=== PATIENT | male | born 1990 | race African-American/Black ===

== ENCOUNTER 2024-05-31 13:00 | Outpatient (CLI) | payer OTHER, SELFPAY ==
--- NOTE | ~2024-05-31 | XR_ITS ---
EXAMINATION: XR chest 2V 05/31/2024 13:29 INDICATION: Left neck pain. Atypical chest pain. PROCEDURE: 2 view chest COMPARISON: No prior studies for comparison. FINDINGS: The lungs are clear. The cardiomediastinal silhouette is within normal limits. There are no pleural effusions. There is no pneumothorax suspected. IMPRESSION: 1: NO ACUTE CARDIOPULMONARY DISEASE. Reviewed, dictated and finalized at location A.
--- NOTE | ~2024-05-31 | XR_ITS ---
XR cervical spine 4-5V 05/31/2024 13:29 Indication: Left neck pain Procedure: 4 views cervical spine Comparison: No prior studies for comparison. Findings: No fracture, subluxation or dislocation. Lateral masses normally aligned. Odontoid process within normal limits. Lung apices are normal. No prevertebral soft tissue abnormality. Vertebral body and disc heights are preserved. Impression: 1: No significant abnormality of the cervical spine. Reviewed, dictated and finalized at location A. Impression: 1: No significant abnormality of the cervical spine.
--- OUTSIDE RECORDS SUMMARY | 2024-05-31 13:09 | XMS_ITS | Data Portability ---
Author Organization [facility] Address [address] [place] [address] Assessment Encounter Date Assessment Date Assessment LastModified by Organization Details LastModified Time 08/06/2020 08/06/2020 His pain is out of proportion to what I can find on exam, explained by his labs or imaging studies to date. He needs further imaging with an MRI of his lumbar spine and the opinion of his vegetable tester. [email or web address] Not available 08/06/2020 16:02:24 11/18/2021 11/18/2021 The abnormal findings on his MRI do not explain his upper back pain and the fact that nothing has ever helped his back pain makes me wonder if there is another factor in play. He has a history of a mood disorder and a positive RF and he was referred to the vegetable tester, unfortunately, I have never received a consultation note from his visit and he does not know where he was seen. [email or web address] Not available 11/25/2021 08:40:03 Plan of Treatment Reminders Order Date Submit Date Provider Last Modified By Organization Details Last Modified Time Details Appointments ANY 15 2024 08:15A M Lavern Alejandro MD Not available Not available Not available Lab CBC 2024 025 [facility], [address], [place], [address], 05/27/2024 09:37:54 basic metabol ic 1998 panel, serum or plasma 2024 025 [facility], [address], [place], [address], 05/27/2024 09:37:53 rf (rheuma toid factor) + anti-cc p abs, serum 2021 [facility], [address], [place], [address], 11/25/2021 06:11:50 CBC w/ auto diff 2021 [facility], [address], [place], [address], 11/25/2021 06:11:52 CMP, serum or plasma 2021 [facility], [address], [address], [place], [address], 11/25/2021 06:11:51 lipid panel, serum 2021 [facility], [address], [place], [address], 11/25/2021 06:11:50 urinaly sis, complet e 2021 [facility], [address], [place], [address], 11/18/2021 15:47:08 rf (rheuma toid factor) + anti-cc p abs, serum 2020 021 [facility], [address], [place], [address], 08/24/2020 06:10:44 WERNER (antinu clear antibod ies) screen, serum 2020 [facility], [address], [place], [address], 08/09/2020 15:08:44 ESR (erythr ocyte sedimen tation rate), blood 2020 [facility], [address], [place], [address], 08/09/2020 15:08:45 rf (rheuma toid factor) , serum 2020 [facility], [address], [place], [address], 08/09/2020 15:08:43 WERNER (antinu clear antibod ies) titer + pattern , ifa, serum 2020 [facility], [address], [place], [address], 08/09/2020 15:08:45 Referral rheumat ologist referra l - Polyart hralgia 2020 [facility], [address] [place] [address], [address], 08/06/2020 14:50:31 psychia trist referra l 2020 [email or web address] Not available 08/10/2020 16:27:28 Procedures None recorde d. Surgeries None recorde d. Imaging XR, cervica l spine - Left sided neck pain 2024 025 [facility], [address] [place] [address] [place] [address], [address], 05/26/2024 14:35:16 XR, chest - Atypica l left sided chest pain, pain around the left scapula 2024 025 [facility] (Imaging), [address] [place] [address] [place] [address], [phone], 05/26/2024 14:50:34 XR, thoraci c spine, 2 view - Pain, positiv e RF [facility] [address] [place], [address], 11/18/2021 16:03:04 XR, lumbosa cral spine - Pain, positiv e RF [email or web address] [address] [place], [address], 11/18/2021 16:03:03 MRI, lumbar spine, w/o contras t - Worseni ng lower back pain with failure of physica l therapy 2020 [facility] ([facility]), [address] [place], [address], 08/09/2020 20:24:39 XR, shoulde r - Pain 2020 [facility] ([facility] Sched[facility]), [address] [place], [address], 08/06/2020 14:41:50 XR, hip, bilater al - Pain 2020 [facility] ([facility] Sched[facility]), [address] [place], [address], 08/06/2020 14:39:00 Medication Orders ketorol ac 10 mg tablet 2021 [facility][id number], [address], [place], [id number], 05/26/2024 12:24:19 Medrol (Pedro) 4 mg tablets in a dose pack 2020 [facility][id number], [address], [place], [id number], 11/18/2021 15:34:14 duloxet ine 60 mg capsule ,delaye d release 2020 [facility] #[id number], [address] [facility] [place], [id number], 11/18/2021 15:41:31 ketorol ac 10 mg tablet 2020 021 [facility] #[id number], [address] [place], [place], [id number], 05/26/2024 12:24:19 Patient TargetsNo targets recorded. Patient Instructions Encounter Date Encounter Id Patient Instructions Last Modified By Organization Details Last Modified Time 08/06/2020 [id number] learning about mood disorders oajao Not available 08/06/2020 13:29:51 Labs (Old and ne w orders) Xrays Rheumatology Ketorolac, side effects were discussed MRI Follow up in 3 weeks Addendum (After the patient was discharged) Based on his PHQ9 screening done by the MA, he will be referred to the psychiatrist. I now wonder if this has a bearing on his symptoms and if this is a somatic representation of a mood disorder. oajao Not available 08/06/2020 16:09:55 He has requested that his FMLA form be completed, he is aware that I do not have a clear diagnosis and may be in a better position after the work up is complete and he is seen by the specialist. In the first instance I have completed the form based on his next appointment in ~ 3 weeks He has severe and intractable polyarthralgia that prevents him from working. He initially had chronic back pain for the last 2 years, but it now involves other joints. oajao Not available 08/06/2020 16:09:37 08/20/2020 [id number] herniated disc: care instructions oajao Not available 08/20/2020 16:18:55 herniated disc: exercises oajao Not available 08/20/2020 16:18:55 sacroiliac pain: exercises oajao Not available 08/20/2020 16:17:59 learning about mood disorders oajao Not available 08/20/2020 15:27:02 Labs (New and ol d orders) All imaging and lab reports to [facility] Rheumatology, please He really should try the Ketorolac that was previously prescribed Follow up in 6 weeks oajao Not available 08/20/2020 16:22:28 All his lab results were discussed in great detail On his last visit, he was rather clear that he could not return to work, it however appears that he has continued to work at a reduced capacity. oajao Not available 08/20/2020 16:21:54 11/25/2020 [id number] back care and preventing injuries: care instructions oajao Not available 11/25/2020 16:11:51 herniated disc: care instructions oajao Not available 11/25/2020 16:07:49 herniated disc: exercises oajao Not available 11/25/2020 16:07:49 Note from the neurosurgeon, CORTNEY [place]. Note from the Pediatric Surgeon when he is eventually seen. Short course of Prednisone, the side effects were discussed in detail. Start Duloxetine as he has pain and a mood disorder and he has not responded well to NSAIDS, muscle relaxants and interventional pain management. Side effects of Duloxetine were discussed including but not limited to worsening of his mood. He really needs to be seen by the vegetable tester. Follow up in 6 weeks oajao Not available 11/26/2020 09:06:35 Detailed visit, I have explained to him that unfortunately, I have not receive any information from [facility] and I can only complete the [facility] forms based on what is available to me. He may want to get the forms to the neurosurgeon as well. oajao Not available 11/26/2020 09:05:49 11/18/2021 [id number] learning about healthy weight oajao Not available 11/18/2021 15:48:58 Labs Xrays Ketorolac, side effects were discussed Follow up in 3 weeks oajao Not available 11/18/2021 15:48:19 05/26/2024 [id number] neck pain: care instructions oajao Not available 05/26/2024 12:42:53 Labs Xray cervic al spine and chest Follow up in 3 weeks oajao Not available 05/26/2024 12:43:51 Reason for Referral Pediatric Surgeon Referral for Musculoskeletal pain Polyarthralgia Polyarthralgia Referring Physician: Lavern Alejandro, Internal Medicine, Encounter Date: 08/06/2020 Psychiatrist Referral for De pressive disorder Referring Physician: Lavern Alejandro, Internal Medicine, Encounter Date: 08/06/2020 Results Created Date Observation Date Name Description Value Unit Range Abnormal Flag Note LastModifiedBy Organization Detail LastModifiedTime 08/07/19 21 08/07/2020 RHEUM ATOID FACTO R (RF) rheumatoid factor (rf) 24.8 IU/mL 0.0-13 .9 above high normal Not Available [facility] ([facility]) [address] [place], [address], 08/09/2020 15:08:43 08/07/19 21 08/07/2020 WERNER W/REF MEKHI IF POSIT CAMILA WERNER direct NEGATI VE negati ve Not Available [facility] ([facility]) [address] [place], [address], 08/09/2020 15:08:44 08/07/19 21 08/07/2020 SEDIM ENTAT ION RATE- WESTE RGREN sedimentatio n rate-westerg eric 2 mm/HR 0-15 Not Available [facility] ([facility]) [address] [place], [address], 08/09/2020 15:08:45 08/07/19 21 08/09/2020 ANTIN UCLEA R ANTIB ODIES , IFA antinuclear antibodies, ifa NEGATI VE Negat camila <1:80 Borde rline 1:80 Posit camila >1:80 Not Available [facility] ([facility]) [address] [place], [address], 08/09/2020 15:08:45 08/21/19 21 08/21/2020 RHEUM ATOID ARTHR ITIS PROFI LE rheumatoid factor (rf) 23.7 IU/mL 0.0-13 .9 above high normal Not Available [facility] ([facility]) [address] [place], [address], 08/24/2020 06:10:44 08/21/19 21 08/24/2020 RHEUM ATOID ARTHR ITIS PROFI LE ccp antibodies IgG/IgA 6 units 0-19 Negat camila <20 Weak posit camila 20 - 39 Moder ate posit camila 40 - 59 Stron g posit camila >59 Not Available [facility] ([facility]) [address] [place], [address], 08/24/2020 06:10:44 08/21/19 21 08/21/2020 C-ALESSIO CTIVE PROTE IN, QUANT C-reactive protein, quant <1 mg/L 0-10 Not Available [facility] ([facility]) [address] [place], [address], 08/24/2020 06:10:44 11/23/19 22 11/23/2021 RHEUM ATOID ARTHR ITIS PROFI LE rheumatoid factor (rf) 20.0 IU/mL <14.0 above high normal Not Available [facility] ([facility]) [address] [place], [address], 11/25/2021 06:11:50 11/23/19 22 11/24/2021 RHEUM ATOID ARTHR ITIS PROFI LE anti-ccp Ab, IgG/IgA 4 units 0-19 Negat camila <20 Weak posit camila 20 - 39 Moder ate posit camila 40 - 59 Stron g posit camila >59 Not Available [facility] ([facility]) [address] [place], [address], 11/25/2021 06:11:50 11/23/1911/23/2021 LIPID PANEL cholesterol, total 121 mg/dL 100-19 9 Not Available [facility] ([facility]) [address] [place], [address], 11/25/2021 06:11:50 11/23/19 22 11/23/2021 LIPID PANEL triglyceride s 41 mg/dL 0-149 Not Available [facility] ([facility]) [address] [place], [address], 11/25/2021 06:11:50 11/23/19 22 11/23/2021 LIPID PANEL HDL cholesterol 57 mg/dL >39 Not Available [facility] [address] [facility], [place], [address], 11/25/2021 06:11:50 11/23/19 22 11/23/2021 LIPID PANEL VLDL cholesterol sayra 10 mg/dL 5-40 Not Available [facility] ([facility]) [address] [facility], [place], [address], 11/25/2021 06:11:50 11/23/19 22 11/23/2021 LIPID PANEL LDL chol calc ([facility]) 54 mg/dL 0-99 Not Available [facility] [address] [facility], [place], [address], 11/25/2021 06:11:50 11/23/19 22 11/23/2021 COMP. METAB OLIC PANEL (14) glucose 87 mg/dL 70-99 Ple ase note refer ence inter bishop haro e Not Available [facility] ([facility]) [address] [facility], [place], [address], 11/25/2021 06:11:51 11/23/19 22 11/23/2021 COMP. METAB OLIC PANEL (14) BUN 14 mg/dL 6-20 Not Available [facility] ([facility]) [address] [facility], [place], [address], 11/25/2021 06:11:51 11/23/19 22 11/23/2021 COMP. METAB OLIC PANEL (14) creatinine 0.96 mg/dL 0.76-1 .27 Not Available [facility] ([facility]) [address] [place], [address], 11/25/2021 06:11:51 11/23/19 22 11/23/2021 COMP. METAB OLIC PANEL (14) eGFR 107 mL/mi n/1.7 3 >59 Not Available [facility] ([facility]) [address] [facility], [place], [address], 11/25/2021 06:11:51 11/23/19 22 11/23/2021 COMP. METAB OLIC PANEL (14) BUN/creatini ne ratio 15 9-20 Not Available [facility] ([facility]) [address] [facility], [place], [address], 11/25/2021 06:11:51 11/23/19 22 11/23/2021 COMP. METAB OLIC PANEL (14) sodium 142 mmol/ L 134-14 4 Not Available [facility] ([facility]) [address] [facility], [place], [address], 11/25/2021 06:11:51 11/23/19 22 11/23/2021 COMP. METAB OLIC PANEL (14) potassium 4.1 mmol/ L 3.5-5. 2 Not Available [facility] ([facility]) [address] [facility], [place], [address], 11/25/2021 06:11:51 11/23/19 22 11/23/2021 COMP. METAB OLIC PANEL (14) chloride 104 mmol/ L 96-106 Not Available [facility] ([facility]) [address] [facility], [place], [address], 11/25/2021 06:11:51 11/23/19 22 11/23/2021 COMP. METAB OLIC PANEL (14) carbon dioxide, total 23 mmol/ L 20-29 Not Available [facility] ([facility]) [address] [facility], [place], [address], 11/25/2021 06:11:51 11/23/19 22 11/23/2021 COMP. METAB OLIC PANEL (14) calcium 9.5 mg/dL 8.7-10 .2 Not Available [facility] ([facility]) [address] [facility], [place], [address], 11/25/2021 06:11:51 11/23/19 22 11/23/2021 COMP. METAB OLIC PANEL (14) protein, total 7.3 g/dL 6.0-8. 5 Not Available [facility] ([facility]) [address] [facility], [place], [address], 11/25/2021 06:11:51 11/23/19 22 11/23/2021 COMP. METAB OLIC PANEL (14) albumin 4.5 g/dL 4.0-5. 0 Not Available [facility] ([facility]) [address], [place], [address], 11/25/2021 06:11:51 11/23/19 22 11/23/2021 COMP. METAB OLIC PANEL (14) globulin, total 2.8 g/dL 1.5-4. 5 Not Available [facility] ([facility]) [address] [facility], [place], [address], 11/25/2021 06:11:51 11/23/19 22 11/23/2021 COMP. METAB OLIC PANEL (14) A/G ratio 1.6 1.2-2. 2 Not Available [facility] ([facility]) [address] [facility], [place], [address], 11/25/2021 06:11:51 11/23/19 22 11/23/2021 COMP. METAB OLIC PANEL (14) bilirubin, total 0.5 mg/dL 0.0-1. 2 Not Available [facility] ([facility]) [address] [facility], [place], [address], 11/25/2021 06:11:51 11/23/19 22 11/23/2021 COMP. METAB OLIC PANEL (14) alkaline phosphatase 92 IU/L 44-121 Not Available [facility]) [address] [facility], [place], [address], 11/25/2021 06:11:51 11/23/19 22 11/23/2021 COMP. METAB OLIC PANEL (14) AST (SGOT) 32 IU/L 0-40 Not Available [facility] ([facility]) [address] [facility] [place], [address], 11/25/2021 06:11:51 11/23/19 22 11/23/2021 COMP. METAB OLIC PANEL (14) ALT (SGPT) 16 IU/L 0-44 Not Available [facility] ([facility]) [address] [facility], [place], [address], 11/25/2021 06:11:51 11/23/19 22 11/23/2021 CBC WITH DIFFE RENTI AL/PL ATELE T WBC 6.6 x10e3 /uL 3.4-10 .8 Not Available [facility] ([facility]) [address] [facility] [place], [address], 11/25/2021 06:11:52 11/23/1911/23/2021 CBC WITH DIFFE RENTI AL/PL ATELE T RBC 4.53 x10e6 /uL 4.14-5 .80 Not Available [facility] ([facility]) [address] [facility] [place], [address], 11/25/2021 06:11:52 11/23/19 22 11/23/2021 CBC WITH DIFFE RENTI AL/PL ATELE T hemoglobin 14.6 g/dL 13.0-1 7.7 Not Available [facility] ([facility]) [address] [facility] [place], [address], 11/25/2021 06:11:52 11/23/1911/23/2021 CBC WITH DIFFE RENTI AL/PL ATELE T hematocrit 42.7 % 37.5-5 1.0 Not Available [facility] ([facility]) [address] [facility], [place], [address], 11/25/2021 06:11:52 11/23/19 22 11/23/2021 CBC WITH DIFFE RENTI AL/PL ATELE T MCV 94 fL 79-97 Not Available [facility] ([facility]) [address] [facility], [place], [address], 11/25/2021 06:11:52 11/23/19 22 11/23/2021 CBC WITH DIFFE RENTI AL/PL ATELE T MCH 32.2 pg 26.6-3 3.0 Not Available [facility] ([facility]) [address] [facility], [place], [address], 11/25/2021 06:11:52 11/23/1911/23/2021 CBC WITH DIFFE RENTI AL/PL ATELE T MCHC 34.2 g/dL 31.5-3 5.7 Not Available [facility] ([facility]) [address] [facility], [place], [address], 11/25/2021 06:11:52 11/23/19 22 11/23/2021 CBC WITH DIFFE RENTI AL/PL ATELE T RDW 12.5 % 11.6-1 5.4 Not Available [facility] ([facility]) [address] [place], [address], 11/25/2021 06:11:52 11/23/19 22 11/23/2021 CBC WITH DIFFE RENTI AL/PL ATELE T platelets 144 x10e3 /uL 150-45 0 below low normal Not Available [facility] ([facility]) [address] [place], [address], 11/25/2021 06:11:52 11/23/1911/23/2021 CBC WITH DIFFE RENTI AL/PL ATELE T neutrophils 57 % notest ab. Not Available [facility] ([facility]) [address] [place], [address], 11/25/2021 06:11:52 11/23/19 22 11/23/2021 CBC WITH DIFFE RENTI AL/PL ATELE T lymphs 29 % notest ab. Not Available [facility] ([facility]) [address] [facility], [place], [address], 11/25/2021 06:11:52 11/23/19 22 11/23/2021 CBC WITH DIFFE RENTI AL/PL ATELE T monocytes 10 % notest ab. Not Available [facility] ([facility]) [address] [facility], [place], [address], 11/25/2021 06:11:52 11/23/19 22 11/23/2021 CBC WITH DIFFE RENTI AL/PL ATELE T eos 3 % notest ab. Not Available [facility] ([facility]) [address] [facility], [place], [address], 11/25/2021 06:11:52 11/23/1911/23/2021 CBC WITH DIFFE RENTI AL/PL ATELE T basos 1 % notest ab. Not Available [facility] ([facility]) [address] [facility], [place], [address], 11/25/2021 06:11:52 11/23/19 22 11/23/2021 CBC WITH DIFFE RENTI AL/PL ATELE T neutrophils (absolute) 3.8 x10e3 /uL 1.4-7. 0 Not Available [facility] ([facility]) [address] [facility], [place], [address], 11/25/2021 06:11:52 11/23/19 22 11/23/2021 CBC WITH DIFFE RENTI AL/PL ATELE T lymphs (absolute) 1.9 x10e3 /uL 0.7-3. 1 Not Available [facility] ([facility]) [address] [facility], [place], [address], 11/25/2021 06:11:52 11/23/19 22 11/23/2021 CBC WITH DIFFE RENTI AL/PL ATELE T monocytes(ab solute) 0.7 x10e3 /uL 0.1-0. 9 Not Available [facility] ([facility]) [address] [facility], [place], [address], 11/25/2021 06:11:52 11/23/19 22 11/23/2021 CBC WITH DIFFE RENTI AL/PL ATELE T eos (absolute) 0.2 x10e3 /uL 0.0-0. 4 Not Available [facility] ([facility]) [address] [facility], [place], [address], 11/25/2021 06:11:52 11/23/19 22 11/23/2021 CBC WITH DIFFE RENTI AL/PL ATELE T baso (absolute) 0.0 x10e3 /uL 0.0-0. 2 Not Available [facility] ([facility]) [address] [facility], [place], [address], 11/25/2021 06:11:52 11/23/19 22 11/23/2021 CBC WITH DIFFE RENTI AL/PL ATELE T immature granulocytes 0 % notest ab. Not Available [facility] ([facility]) [address] [facility], [place], [address], 11/25/2021 06:11:52 11/23/19 22 11/23/2021 CBC WITH DIFFE RENTI AL/PL ATELE T immature grans (abs) 0.0 x10e3 /uL 0.0-0. 1 Not Available [facility] ([facility]) [address] [facility], [place], [address], 11/25/2021 06:11:52 08/07/19 21 08/06/2020 XR, hip, bilat eral No observ ation record ed. [facility] ([facility]) [address] [facility], [place], [address], 08/20/2020 15:11:37 08/07/19 21 08/06/2020 XR, shoul davin No observ ation record ed. [facility] ([facility]) [address] [place], [address], 08/20/2020 15:11:36 08/10/19 21 08/09/2020 MRI, lumba r spine , w/o contr ast No observ ation record ed. [facility] ([facility]) [address] [place], [address], 08/20/2020 15:11:36 Result Notes None recorded. Problems No Known Problems Procedures Surgical History None recorded. Imaging Results Imaging Date Name Status LastModified by Organiz ation Details LastModified Time 08/06/2020 XR, hip, bilateral completed [facility] ([facility]) [address] [place], [address], 08/20/2020 15:11:37 08/06/2020 XR, shoulder completed [facility] ([facility]) [address] [place], [address], 08/20/2020 15:11:36 08/09/2020 MRI, lumbar spine, w/o contrast completed [facility] ([facility]) [address] [place], [address], 08/20/2020 15:11:36 Procedure Notes None recorded. Medical Equipment None Reported. Allergies No known drug allergies Medications Name Sig Start Date Stop Date Status Note LastModified by Organization Details LastModified Time meloxicam 15 mg tablet 11/25 completed Not Available Not Available Not Available ketorolac 10 mg tablet Take 1 tablet every 6 hours by oral route as needed for 5 days. 05/26 completed Not Available Not Available Not Available methylpredn isolone 4 mg tablets in a dose pack Take 1 dose pk by oral route as directed. 11/18 completed Not Available Not Available Not Available cyclobenzap rine 5 mg tablet 11/25 completed Not Available Not Available Not Available duloxetine 60 mg capsule,del ayed release Take 1 capsule every day by oral route as directed for 30 days. 11/18 completed Not Available Not Available Not Available Vitals Date Recorded Body height Body mass index (BMI) Body weight Heart rate Oxygen saturation Oxygen saturation in Arterial blood by Pulse oximetry Body temperature Systolic blood pressure Diastolic blood pressure Provider Name and Address Organization Details Last Updated DateTime 1 180.34 cm 26.6 kg/m2 51018.9 9 g 92 /min 98 % 98 % 98.1 [degF] 120 mm[Hg] 84 mm[Hg] Dolores Whitt [place] [facility] 1 12:21:55 Date Recorded Body height Body mass index (BMI) Body weight Heart rate Oxygen saturation Oxygen saturation in Arterial blood by Pulse oximetry Respiratory rate Body temperature Systolic blood pressure Diastolic blood pressure Provider Name and Address Organization Details Last Updated DateTime 1 180.34 cm 25.7 kg/m2 14704.4 3 g 86 /min 98 % 98 % 14 /min 98 [degF] 124 mm[Hg] 80 mm[Hg] Dolores Whitt [place] [facility] 1 15:06:13 Date Recorded Body height Body mass index (BMI) Body weight Respiratory rate Oxygen saturation Oxygen saturation in Arterial blood by Pulse oximetry Heart rate Body temperature Systolic blood pressure Diastolic blood pressure Provider Name and Address Organization Details Last Updated DateTime 1 180.34 cm 26.8 kg/m2 38325.1 7 g 12 /min 98 % 98 % 82 /min 98.3 [degF] 120 mm[Hg] 84 mm[Hg] Dolores Whitt [place] [facility] 1 15:32:03 Date Recorded Body height Body mass index (BMI) Body weight Body temperature Oxygen saturation Oxygen saturation in Arterial blood by Pulse oximetry Heart rate Systolic blood pressure Diastolic blood pressure Provider Name and Address Organization Details Last Updated DateTime 2 180.34 cm 26.5 kg/m2 42087.8 3 g 98.8 [degF] 98 % 98 % 84 /min 110 mm[Hg] 78 mm[Hg] Vazquez Sevilla [place] [facility] 2 15:05:54 Date Recorded Body height Body mass index (BMI) Body weight Oxygen saturation Oxygen saturation in Arterial blood by Pulse oximetry Heart rate Respiratory rate Systolic blood pressure Diastolic blood pressure Provider Name and Address Organization Details Last Updated DateTime 5 180.34 cm 27.8 kg/m2 54604.0 4 g 96 % 96 % 100 /min 14 /min 120 mm[Hg] 76 mm[Hg] Dolores Whitt [place] [facility] 5 12:26:32 Social History Question Answer Notes LastModified by Organizat ion Details LastModified Time Tobacco Smoking Status Never Smoker [place], [place] [facility] 03/24/2020 14:27:59 Do You Have An Advance Directive? Yes Information not available 03/24/2020 What Is Your Level Of Alcohol Consumption? Occasional Information not available 03/24/2020 Are You Blind Or Do You Have Difficulty Seeing? No Information not available 03/24/2020 What Is Your Level Of Caffeine Consumption? None Information not available 03/24/2020 Are You A Caregiver? No Information not available 03/24/2020 What Type Of Foster Care Social Worker Do You Use? None Information not available 03/24/2020 Have You Been To An Area Known To Be High Risk For COVID-19? No Information not available 03/24/2020 Are You Currently Employed? Yes Information not available 03/24/2020 Are You Deaf Or Do You Have Serious Difficulty Hearing? No Information not available 03/24/2020 What Type Of Diet Are You Following? 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 No Information not available 03/24/2020 Have You Been Exposed To Heavy Metals? No Information not available 03/24/2020 Have There Been Any Changes To Your Family Or Social Situation? No Information not available 03/24/2020 What Is The Fluoride Status Of Your Home? Unknown Information not available 03/24/2020 Are There Any Guns Present In Your Home? No Information not available 03/24/2020 What Was The Date Of Your Most Recent Tobacco Screening? 05/26/2024 Information not available 05/26/2024 Have You Ever Been Counseled For Unhealthy Alcohol Use? No Information not available 03/24/2020 What Is Your Relationship Status? Single Information not available 03/24/2020 Do You Use Your Seat Belt Or Car Seat Routinely? Yes Information not available 03/24/2020 Do You Have Smoke And Carbon Monoxide Detectors In Your Home? Yes Information not available 03/24/2020 Are You Passively Exposed To Smoke? No Information not available 03/24/2020 Are There Any Smokers In Your House? No Information not available 03/24/2020 Do You Participate In Social Media? Yes Information not available 03/24/2020 Do You Use Any Illicit Or Recreational Drugs? Yes Marijuanna Information not available 03/24/2020 Do You Use Sunscreen Routinely? No Information not available 03/24/2020 Have You Recently Traveled Abroad? No Information not available 03/24/2020 Have You Used IV Drugs? No Information not available 03/24/2020 Are You Currently In School? No Information not available 03/24/2020 Do You Have Any Dietary Restrictions? No Information not available 03/24/2020 Do You Or Have You Ever Used Any Other Forms Of Tobacco Or Nicotine? No Information not available 03/24/2020 Sex: Male Functional Status Question Answer Note LastModified by Organizat ion Details LastModified Time Do you have difficulty walking or climbing stairs? No Information not available 03/24/2020 Do you have transportation difficulties? No Information not available 03/24/2020 Are you able to walk? YESWOREST Information not available 03/24/2020 Do you have difficulty doing errands alone? No Information not available 03/24/2020 Are you able to care for yourself? Yes Information n ot available 03/24/2020 Do you have difficulty dressing or bathing? No Information not available 03/24/2020 What is your exercise level? Occasional Information not available 03/24/2020 Mental Status Question Answer Note LastModified by Organization D etails LastModified Time Do you have difficulty concentrating, remembering or making decisions? No Information no t available 03/24/2020 Family History Nothing Reported. Medical History Condition Response Coronary Artery Disease N Other N High Blood Pressure N Atrial Fibrillation N Kidney or Bladder Problems N Thyroid Problems N GI Problems N Depression N COPD N Blood Clots N Skin Problems N Anemia N Heart Attack ([place]) N Anxiety Disorder N Diabetes N Muscle, Joint, or Bone Problems N Seizures/Epilepsy N Acid Reflux (GERD) N Cancer N Stroke N Asthma N Allergies N High Cholesterol N Hepatitis N Liver Disease N Headaches N Osteoporosis N Heart Failure N Immunizations Vaccine Type Date Status Note Provider Nam e and Address Organization Details Recorded Time MMR 3 completed Lavern Alejandro MD Attn: Accounting,[address] [place], [place], [address] [place] [address], [place] [facility] 11/18/2021 15:35:15 OPV 9 completed Lavern Alejandro MD Attn: Accounting,[address] [place], [place], [address] [place] [address], [place] [facility] 11/18/2021 15:35:15 DTaP 8 completed Lavern Alejandro MD Attn: Accounting,[address] [place], [place], [address] [place] [address], [place] [facility] 11/18/2021 15:35:15 OPV 9 completed Lavern Alejandro MD Attn: Accounting,[address] [place], [place], [address] [place] [address], [place] [facility] 11/18/2021 15:35:15 OPV 4 completed Lavern Alejandro MD Attn: Accounting,[address] [place], [address] [place] [address], [place] [facility] 11/18/2021 15:35:15 MMR 8 thony Alejandro MD Attn: Accounting,[address] [place], [address] [place] [address], [place] [facility] 11/18/2021 15:35:15 DTP 9 completed Lavern Alejandro MD Attn: Accounting,[address], [place], [place], [address] [place] [address], [place] [facility] 11/18/2021 15:35:15 MMR 4 completed Lavern Alejandro MD Attn: Accounting,[address], [place], [address] [place] [address], [place] [facility] 11/18/2021 15:35:15 Hep B, adolescent or pediatric 9 completed Lavern Alejandro MD Attn: Accounting,[address], [place], [address] [place] [address], [place] [facility] 11/18/2021 15:35:15 DTP 9 completed Lavern Alejandro MD Attn: Accounting,[address], [place], [address] [place] [address], [place] [facility] 11/18/2021 15:35:15 OPV 3 completed Lavern Alejandro MD Attn: Accounting,[address], [place], [address] [place] [address], [place] [facility] 11/18/2021 15:35:15 Hep B, adolescent or pediatric 8 completed Lavern Alejandro MD Attn: Accounting,[address], [place], [address] [place] [address], [place] [facility] 11/18/2021 15:35:15 DTP 9 completed Lavern Alejandro MD Attn: Accounting,[address], [place], [address] [place] [address], [place] [facility] 11/18/2021 15:35:15 DTP 3 completed Lavern Alejandro MD Attn: Accounting,[address], [place], [address] [place] [address], [place] [facility] 11/18/2021 15:35:15 Hib, unspecified formulation 3 completed Lavern Alejandro MD Attn: Accounting,[address], [place], [address], [facility] - [facility] 11/18/2021 15:35:15 Hep B, adolescent or pediatric 9 completed Lavern Alejandro MD Attn: Accounting,[address] [facility], [place], [address], [facility] 11/18/2021 15:35:15 Td (adult), 2 Lf tetanus toxoid, preservative free, adsorbed 4 completed Lavern Alejandro MD Attn: Accounting,[address] [facility], [place], [address], [facility] - [facility] 11/18/2021 15:35:15 DTP 4 completed Lavern Alejandro MD Attn: Accounting,[address] [facility], [place], [address], [facility] 11/18/2021 15:35:15 Past Encounters Encounter ID Performer Location Encounter Start Date Encounter Closed Date Diagnosis/Indication Diagnosis SNOMED-CT Code Diagnosis ICD10 Code Diagnosis Note [id number] [facility] [address] [place] [address] [phone] 03/24/2020 14:10:05 03/25/2020 11:04:39 General examination of patient 577118020 Z00.01 Chronic low back pain 27 0461565 M54.5 Skin lesion 84698568 L98 .9 Allergic disposition 609 590596 T78.40XA Influenza vaccination declined 024072455 Z28.21 Tetanus va ccination declined by patient 059443354 Z28.21 [id number] MD Joe Escobedo (Adult Med) [address] [place] [address] [id number] 08/06/2020 12:11:48 08/09/2020 06:25:48 Musculoskeletal pain 345029226 M79.10 Chronic low back pain 27 5326371 M54.5 He needs further imaging with an MRI of his lumbar spine as his pain persists despite a normal xray, normal labs and he has been seen and failed treatment by the physical therapist. he has refused IM KetorolacS hort course of Ketorolac PO, side effects were discussed Depressive disorder 3548 9007 F32.9 Based on his PHQ9 screening Immunization advised 310 220151 Z71.9 [id number] Lavern Alejandro MD [facility] (Adult Med) [address] [place] [address] [phone] 0 08/20/2020 14:56:10 08/23/2020 13:47:42 Rheumatoid factor detected 071951169 R76.0 RF 24 08/06/2020 epeat RFhe has been referred to the rheumatolo [facility] MRI of lum bar spine abnormal 052598521 R93.7 MRI disc bulge, moderate to severe NFSNeurosu rgeon to see as he has failed PT Depressive disorder 3548 9007 F32.9 Based on his PHQ9 screeningH e has refused to be referred Inflammati on of sacroiliac joint 54248197 M46.1 Mild degenerati ve changes on the xray. Prolapsed lumbar intervertebral disc 644312040 M51.26 Tetanus va ccination declined by patient 927974761 Z28.21 Vaccine de clined by patient 4210236354 02 Z28.29 [id number] Lavern Alejandro MD [facility] (Adult Med) [address] [place] [address] [phone] 0 11/25/2020 15:15:10 11/26/2020 09:39:07 Rheumatoid factor detected 126757234 R76.0 RF 24 08/06/2020 and again on 08/20/2020[facility] MRI of lum bar spine abnormal 471782147 R93.7 The MRI of the LS spine done on 08/09/2020 confirms a disc bulge as well as moderate to severe right neural foraminal stenosis (NFS)It appears that he was seen by the Neurosurge on and possibly interventi onal pain management .I will request the consultati on notes. Inflammati on of sacroiliac joint 98841585 M46.1 Mild degenerati ve changes on the xray. Prolapsed lumbar intervertebral disc 945831713 M51.26 SARS-CoV-2 antigen vaccine declined 3028133328 Z28.21 Influenza vaccination declined 085576169 Z28.21 Low back pain 399435676 M54.50 Musculoskeletal pain 279 711722 M79.10 [id number] Lavern Alejandro MD [facility] (Adult Med) [address] [place] [address] [id number] 11/18/2021 14:39:25 11/21/2021 10:46:14 Influenza vaccination declined 067070571 Z28.21 SARS-CoV-2 antigen vaccine declined 4150088978 Z28.21 Chronic back pain 414126 002 G89.29 Seen by the neurosurge onSeen and treated by Physical therapyHe may have been seen by pain management Rheumatoid factor detected 804772891 R76.0 RF 24 08/06/2020 and again on 08/20/2020He was the rheumatolo gist to rule out Rheumatoid Arthritis General ex amination of patient 358703939 Z00.01 Body mass index 25-29 - overweight 984194135 Z68.26 [id number] Lavern Alejandro MD [facility] (Adult Med) [address] [place] [address] [phone] 05/26/2024 12:16:26 05/27/2024 10:09:21 Atypical chest pain 901298988 R07.89 Pain of le ft shoulder blade 145215324 M25.512 Neck pain 21728473 M54.2 Health Concerns Section Related Observation LastModified by Organization Detai ls LastModified Time None Recorded Concern Status LastModified by Organization Details LastModified Time None Recorded Advance Directives Directive Y: Payers Encounter Date Sequence Insurance Name Policy Number Policy Daniels Covered Member ID Daniels Member ID Guarantor Name 08/06/2020 1 [facility] [id number] Eric Rebolledo [id number] Eric Rebolledo 08/20/2020 1 [facility] [id number] Eric Rebolledo [id number] Eric Rebolledo 11/25/2020 1 [facility] [id number] Eric Rebolledo [id number] Eric Rebolledo 11/18/2021 1 [facility] [id number] Rebolledo [id number] Eric Rebolledo 05/26/2024 1 [facility] [id number] Eric Rebolledo [id number] Eric Rebolledo Notes Date Note Type Note Provider Name and Address Organization Details Recorded Time text/html Back PainReported bypatient.Location:pain is not radiating Severity:worsening;sever e (8-10);interference with work Duration:chronic Onset/Timing:recurrent episode Context:prior back problems Alleviating Factors:rest Aggravating Factors:movement/positio oneida;twisting;flexing back;extending back Associated Symptoms:no fever; no weak limbs; no numbness of the legs/feet; no incontinence; no shortness of breath;tinglingHip(s)Rep orted bypatient.Location:[facility] Quality:aching Severity:severe Duration:weeks Context:cannot identify Alleviating Factors:nothing helps Aggravating Factors:cannot identify Previous Surgery:none Prior Imaging:none Previous Injections:none Previous PT:none Work Related:no Working:regular dutyMusculoskeletal PainReported bypatient.Location:[facility] neck; left shoulder; lumbar spine; bilateral hip Severity:pain level with meds 10/10;worsening Duration:present for 1-6 months Timing:intermittent Context:prior back problems Alleviating factors:rest Aggravating factors:movement/positio oneida Associated Symptoms:no fever; no weak limbs; no tingling; no numbness of the legs/feet; no incontinence ADL (Activities of Daily Living)do not improve with medication(Ibuprofen & Tylenol)ShoulderReported bypatient.Hand Dominance:right Location:left Quality:aching Severity:mild Duration:weeks Timing:acute Aggravating Factors:cannot identify Associated Symptoms:no weakness; no numbness; no tingling; no swelling; no redness; no warmth; no ecchymosis; no catching/locking; no popping/clicking; no buckling; no grinding; no instability; no radiation down arm; no drainage; no fever; no chills; no weight loss; no change in bowel/bladder habits Previous Surgery:none Prior Imaging:none Previous Injections:none Previous PT:none Work Related:no Working:regular duty My back pains have been extremely bad The pain has moved to my hips and my back It's gone to my hips My shoulder has been hurting Excruciating pain from my hips, my lower back and my neck area They want me to take short term disability and go on disability as I have not been able to work I went earlier this week but...... Mr Rebolledo returns, in the interim, he was seen by the plastic surgeon and the physical therapist. His back pain which is chronic and has been going on for over 2 years is not any better, there was no improvement after physical therapy and in addition to his back pain, he also has pain in both hips, his upper back and his left shoulder. OTC medications do not help and the pain was so bad earlier this week that he was sent home from work. He would like to go on short term disability and he needs his FMLA papers completed as well. There is no joint stiffness, rash, reported fever or periodicity associated with the pain, he also denies any FHX. of rheumatological disorders. Lavern Alejandro MD Attn: Accounting,[address] [facility], [place], [address], [facility] 08/06/2020 16:10:59 1 text/html Back PainReported bypatient.Location:[facility] hips Severity:same;moderate (5-7);interference with work Duration:chronic Onset/Timing:recurrent episode Context:prior back problems; used medications for back pain Alleviating Factors:relieved by changing position Aggravating Factors:movement/positio oneida Associated Symptoms:no fever; no weak limbs; no numbness of the legs/feet; no tingling; no incontinence; no shortness of breath The neurosurgeon has, but not the Pediatric Surgeon I know you signed me off from work, but I just got the paper a few days ago I just told her, no Mr Rebolledo returns, he has been back at work 3-4 times since his last visit and for about 5 hours per shift. On his last visit, he felt that he was in no position to return to work and his disability paperwork was completed based on that information. He states that he was unaware that he was prescribed Ketorolac on his last visit even though this was discussed. His back and hip pain persists and he was contacted by the neurosurgeon but he is yet to be contacted by the vegetable tester. With regards to his positive screening test for depression and his referral to behavioral health, he has declined to be seen at this time. Lavern Alejandro MD Attn: Accounting,[address] [facility], [place], [address], [facility] 08/20/2020 18:44:03 1 text/html Musculoskeletal PainReported bypatient.Location:pain is not radiating; thoracic spine; lumbar spine; bilateral hip Quality:sharp;dull Severity:same; pain level without meds 08/21 Duration:present for >12 months (Years) Timing:constant Context:had evaluations by back specialist; previous MRI Aggravating factors:movement/positio oneida Associated Symptoms:no fever; no weak limbs; no tingling; no numbness of the legs/feet; no incontinence ADL (Activities of Daily Living)do not improve with medication Just the follow up What they being prescribed to me wasn't working I got two injection shots That was [employer]... Mr Rebolledo returns, he needs his disability forms completed. In the interim, it appears that he was seen at [facility], prescribed medications and he treated with injections that did not help. He is uncertain about whether he was seen by the Pediatric Surgeon or the Neurosurgeon, but the prescriptions appear to have been written by a CORTNEY Sewell in the Neurosurgical dept. He has a follow up appointment on January 19 and he believes that it is with the Pediatric Surgeon. He states that his bilateral hip and lower back pain persist and he has not been able to return to work and he now risks an eviction. Lavern Alejandro MD Attn: Accounting, [place], [address], [facility] 11/26/2020 09:08:03 2 text/html I am having a lot of pain lately to my back, it is getting harder to sleep. It was my lower back, but now I am starting to feel it in my upper back I know for a fact that I seen a vegetable tester I remember getting my steroid shot, that was no help Mr Rebolledo returns, in the interim he is certain that he was seen by the vegetable tester and auto painter. He cannot recall what the vegetable tester said, but he remembers that the two series of steroid shots did not help. As a matter of fact, nothing he has been prescribed or treated with has ever helped his back pain. He denies any lower extremity radiation or weakness. Lavern Alejandro MD Attn: Accounting, [place], [address], [facility] 11/25/2021 08:40:08 2 text/html Back PainReported bypatient.Location:pain is not radiating Quality:sharp Severity:worsening;pain level 6/10;severe (8-10) Duration:chronic Onset/Timing:recurrent episode Context:prior back problems; used medications for back pain Alleviating Factors:relieved by changing position Aggravating Factors:movement/positio oneida Associated Symptoms:no fever; no weak limbs; no numbness of the legs/feet; no tingling; no incontinence; no shortness of breath Lavern Alejandro MD Attn: Accounting[address] [place], [address], [facility] 11/25/2021 08:40:08 5 text/html ShoulderReported bypatient.Hand Dominance:right Location:left Quality:aching Severity:moderate; worst pain 6/10 Duration:2 months Timing:nighttime Context:cannot identify Aggravating Factors:Light Previous Surgery:none Prior Imaging:none Previous Injections:none Previous PT:none Work Related:no Working:regular duty My shoulder blade area He complains of pain around his left shoulder area, specifically above and medial to the left scapula, as well as the left side of the neck. He cannot recall an injury and the pain has been going on for about two months. The only thing that worsened the pain was an alcoholic beverage. To some extent, he also feels that there is internal pain on the left side of his chest, there is no SOB or recent respiratory tract illness. Lavern Alejandro MD Attn: Accounting[address] [place], [address], [facility] 05/26/2024 13:25:40
--- OUTSIDE RECORDS SUMMARY | 2024-05-31 13:09 | XMS_ITS | Clinical Summary ---
Author Organization [place] [id number] [facility] Address [address] [place] [address] Care Team Providers Care Window Glazier Name Role Phone Lavern Alejandro MD Primary Care Provider Allergies No known active allergies Medications celecoxib (CeleBREX) 200 mg capsule Take 1 capsule (200 mg total) by mouth daily 30 capsule Active Additional Information Patient not taking.Reported on 05/31/2022 Active Problems No known active problems Medical History Medical History Date Comments Low back pain Headache Arthritis Depression Social History Tobacco Use Types Packs/Day Years Used Date Smoking Tobacco: Never Tobacco Cessation:Counseling Given: Not Answered AUDIT-C Answer Date Recorded Q1: How often do you have a drink containing alc ohol? Never 09/15/2020 Average Number of Drinks Not on file 021 Q3: How often do you have si x or more drinks on one occasion? 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 Gender Identity Not on file Sexual Orientation Not on file Obstetrics History Last Filed Vital Signs Vital Sign Reading Time Taken Comments Blood Pressure 125/89 05/31/2022 7:52 AM CDT Pulse 66 05/31/2022 7:52 AM CDT Temperature 36.7 C (98 F) 05/31/2022 7:52 AM CDT Respiratory Rate 18 09/23/2020 1:43 PM CDT Oxygen Saturation 99% 09/23/2020 1:43 PM CDT Inhaled Oxygen Concentration - - Weight 89.8 kg (198 lb) 05/31/2022 7:52 AM CDT Height 180.3 cm (5' 11 ) 05/31/2022 7:52 AM CDT Body Mass Index 27.62 05/31/2022 7:52 AM CDT Plan of Treatment Health Maintenance Due Date Last Done Comments Depression Screening 1988 Varicella Vaccines (1 of 2 - 13+ 2-dose series) 2001 DTaP/Tdap/Td Vaccine (6 - Tdap) 01/05/2004 01/04/2004, 01/04/1998, 10/18/1993, Additional history exists Regular Well Visit/Exam 18-64 2006 Influenza Vaccine (#1) 2023 Hepatitis B Screening Completed 05/31/2022 , 12/24/1998, 10/22/1998, Additional history exists Hepatitis C Screening Completed 05/31/2022 HPV Vaccines Aged Out No longer eligi ble based on patient's age to complete this topic Pneumococcal vaccine <65 Aged Out No longer eligible based on patient's age to complete this topic Goals Goal Patient Goal Type Associated Problems Recent Progress Patient-Stated? Author CCM Chronic Pain Care Plan Chronic Care Management No Barb Santoyo, MOUNIKA Note: Problem: Chronic Pain Goals: 1. Minimize further functional decline 2. Maximize quality of life 3. Control pain Strategies: - Activity/exercise program recommendation - Conservative stepwise pain medicine strategy with multi-disciplinary approach - Recommend healthy lifestyle strategies and compensatory methods as needed Reduce the likelihood of falling Lifestyle No Barb Santoyo, MOUNIKA Note: Below are four things you can do to prevent falls: Begin an exercise program to improve your leg strength & balance Ask your doctor or pharmacist to review your medicines Get annual eye check-ups & update your eyeglasses Make your home safer by: Removing clutter & tripping hazards Putting railings on all stairs & adding grab bars in the bathroom Having good lighting, especially on stairs Contact your local community or [facility] for information on exercise, fall prevention programs, or options for improving home safety. Procedures Procedure Name Priority Date/Time Associated Diagnosis Comments HEPATITIS C ANTIBODY Routine 05/31/2022 9:22 AM CDT Low back pain, unspecified back pain laterality, unspecified chronicity, unspecified whether sciatica present from Last 3 Months or Most Recently Relevant to Health Maintenance Results * Hepatitis C antibody (05/31/2022 9:22 AM CDT) Hep C Ab Nonreactive Nonreactive [facility] Comment:Antibodies to HCV no t detected. Does NOT exclude the possibility of recent exposure to HCV. Current interpretive data was last revised on 21 Blood 05/31/2022 9:22 AM CDT 05/31/2022 11:01 AM CDT Joy Lamas MD LAB MICROBIOLOGY - GENERAL ORD ERABLES Final Result [facility] Department [place] [address] from Last 3 Months or Most Recently Relevant to Health Maintenance Insurance [facility] CHOICE PLUS [facility] HMO/PPO Address: [id number] [place] [address] [facility] CHOICE PLUS [facility] HMO/PPO [place] [address] Care Teams Window Glazier Relationship Specialty Start Date End Date Lavern Alejandro MD [address] [place] [id number] PCP - General Internal Medicine 03/25/20
--- OUTSIDE RECORDS SUMMARY | 2024-05-31 13:09 | XMS_ITS | Continuity of Care Document ---
Author Organization [facility] Address [address] [place] [address] Phone Care Team Providers Care Autopsy Pathologist Name Role Phone Brown OD, Maicol Unavailable Unavailable Advance Directives Directive Yes / No Effective Date File Name No Information Encounters Encounter Description Practice Location Reason(s) For Visit Diagnoses Date Provider Providers Copied on Encounter [facility], [address], [place], [place], [id number], [place] tel:[phone] [address] [facility] No Information May- 0-200 6 Brown OD Maicol. [address] , [address], [place], [address], [place]. tel:[phone] Family History Family Member Type Diagnosis Age At Onset No Information Payers Payer name Insurance type Covered green party ID Authoriza tion(s) Medicaid [facility] [id number] Social History Type Description Quantity Date Captured Comments Sex Male Smoking Status No Information Chief Complaint And Reason For Visit No Information Reason For Referral Reason For Referral No Information History Of Present Illness Encounter Date Complaint History Of Prese nt Illness No Information Functional Status Date Functional Assessmen t No Information Instructions Date Instruction Additional Infor mation No Information Assessments Type Assessment Date No Information Patient Care Teams Name Effective Dates (start - stop) Status Members No Information
--- OUTSIDE RECORDS SUMMARY | 2024-05-31 13:09 | XMS_ITS | CONTINUITY OF CARE DOCUMENT ---
Author Name mamie hatch Address Unknown Organization [facility] Address [address] [place] [address] [address] [place] [address] Phone [phone] Care Team Providers Care Ton Container Filler Name Role Phone mamie hatch Unavailable Unavailable
--- OUTSIDE RECORDS SUMMARY | 2024-05-31 13:09 | XMS_ITS | Referral Summary ---
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 Author CCM Chronic Pain Care Plan Chronic Care Management No Barb Santoyo RN Note: Problem: Chronic Pain Goals: 1. Minimize [...] on stairs Contact your local community or [facility] for information on exercise, fall prevention [...] 9:22 AM CDT 05/31/2022 11:01 AM CDT us Joy Lamas MD LAB MICROBIOLOGY - GENERAL ORD ERABLES Final Result [facility] [place] [address] from Last 3 Months or Most Recently Relevant to Health Maintenance Insurance [facility] CHOICE PLUS [facility] CHO[facility] PLUS Care Teams Film Color Tester Relationship Specialty Start Date End Date Lavern Alejandro MD [address] [place] [id number] PCP - General Internal Medicine 03/25/20
== END 2024-05-31 13:01 | disposition home or self-care (01) ==
PROVIDERS: PCP Internal Medicine Infectious Disease; Visit Provider Internal Medicine Infectious Disease
DX: M54.2 Cervicalgia (principal); R07.89 Other chest pain
CPT/HCPCS: 71046; 72050